=== PATIENT | female | born 1960 | race American Indian/Alaskan Native ===

== ENCOUNTER 2016-08-10 08:51 | Outpatient (CLI) | payer BC ==
[2016-08-10 09:05] LABS: Basophils % (Auto) 0.5 % (0.0-1.8); Eosinophils % (Auto) 2.2 % (0.0-4.3); Hemoglobin 13.3 gm/dl (10.1-14.3); Mean Corpuscular HGB Conc 34 % (30-34); Mean Corpuscular Hemoglobin 30 pg (28-32); Mean Corpuscular Volume 88 fl (79-97); Platelet Count 246 K/mm3 (140-440); Red Blood Count 4.45 M/mm3 (3.65-5.03); Red Cell Distribution Width 13.4 % (13.2-15.2); White Blood Count 5.1 K/mm3 (4.5-11.0)
[2016-08-10 09:13] LABS: Bacteria,Urine 1+ /HPF (Negative); Bilirubin,Urine NEG (Negative); Blood,Urine NEG (Negative); Ketones,Urine NEG (Negative); Leukocyte Esterase,Urine NEG (Negative); Nitrite,Urine NEG (Negative); Protein,Urine <15 mg/dL mg/dL (Negative); RBC,Urine < 1.0 /HPF (0.0-6.0); Urobilinogen,Urine < 2.0 mg/dL (<2.0); WBC,Urine < 1.0 /HPF (0.0-6.0)
[2016-08-10 09:17] LABS: Alanine Aminotransferase 20 units/L (7-56); Albumin 4.4 g/dL (3.9-5); Albumin/Globulin Ratio 1.2 %; Alkaline Phosphatase 75 units/L (35-129); Anion Gap 14 mmol/L; BUN/Creatinine Ratio 15.71; Bilirubin,Total 0.8 mg/dL (0.1-1.2); Blood Urea Nitrogen 11 mg/dL (7-17); Carbon Dioxide 29 mmol/L (22-30); Chloride 101.8 mmol/L (98-107); Cholesterol 234 mg/dL (50-199); Glucose 109 mg/dL (65-100); HDL Cholesterol 69 mg/dL (40-59); LDL Cholesterol,Direct 138 mg/dL (50-130); Potassium 4.1 mmol/L (3.6-5.0); Sodium 141 mmol/L (137-145); Total Protein 8.2 g/dL (6.3-8.2); Triglycerides 138 mg/dL (2-149)
[2016-08-14 17:05] LABS: Vitamin D, 25-OH, Total 11 ng/mL (30-100)
== END 2016-08-10 08:52 | disposition home or self-care (01) ==
LOC: LAB 08:51
PROVIDERS: ATTEND Internal Medicine
DX: Z00.00 Encounter for general adult medical examination without abnormal findings (principal)
CPT/HCPCS: 36415; 80053; 80061; 81001; 82043; 82306; 82607; 83036; 85025; 87086

== ENCOUNTER 2017-07-26 07:59 | Outpatient (CLI) | payer BC ==
--- NOTE | 2017-07-26 14:59 | Mammography Report ---
BILATERAL DIGITAL SCREENING MAMMOGRAM with CAD: 07/26/17 07:59:00 CLINICAL: Routine screening. COMPARISON:07/19/16 FINDINGS: The breasts are heterogeneously dense, which may obscure small masses. A right asymmetry on MLO view requires additional imaging.No architectural distortion or suspicious calcifications.The left breast is negative. IMPRESSION: Right asymmetry requiring further workup. BI-RADS CATEGORY: 0 -- Additional Imaging Evaluation Required RECOMMENDATION: Recall for right true lateral and spot magnification MLO views and right breast ultrasound if needed. ACR BI-RADS MAMMOGRAPHIC CODES: 0 = Needs additional imaging evaluation; 1 = Negative; 2 = Benign; 3 = Probably benign; 4 = Suspicious; 5 = Malignant; 6 = Known biopsy-proven malignancy COMMENT: 1. Dense breast tissue, i.e., adenosis, fibrocystic changes, etc., may obscure an underlying neoplasm. 2. Approximately 10% of cancers are not detected with mammography. 3. A negative mammography report should not delay biopsy if a clinically suspicious mass is present. COMMENT: Patient follow-up letters are generated via our [employer] application.
== END 2017-07-26 08:00 | disposition home or self-care (01) ==
LOC: MAMMO 07:59
PROVIDERS: ATTEND Obstetrics & Gynecology
DX: Z12.31 Encounter for screening mammogram for malignant neoplasm of breast (principal)
CPT/HCPCS: 77067; G0202

== ENCOUNTER 2017-08-08 13:26 | Outpatient (CLI) | payer BC ==
--- NOTE | 2017-08-08 15:26 | Mammography Report ---
Diagnostic right mammogram and targeted right breast ultrasound. History: Recall. Findings: On the spot compression image in the MLO projection, there is confirmation of a 4 mm circumscribed asymmetry to centrally. This is not definite identified on the CC compression view. Sonographic evaluation of the upper half of the right breast demonstrates a 3 mm in diameter hypoechoic circumscribed lesion at the 12:00 position, 6 cm from the nipple. This could represent the mammographic asymmetry, but this is not certain. Incidental note is made of an ovoid shaped circumscribed hyperechoic lesion at the 3:00 position, 7 cm from the nipple. This measures 8 x 4 mm it has benign features. No mammographic correlate is present. This may represent a lipoma. Impression: No suspicious findings. A tiny benign-appearing lesion is seen at the 12:00 position sonographically, possibly representing the mammographic density. BI-RADS code: 2. Recommendation: Annual screening.
== END 2017-08-08 13:27 | disposition home or self-care (01) ==
LOC: MAMMO 13:26
PROVIDERS: ATTEND Obstetrics & Gynecology
DX: N64.89 Other specified disorders of breast (principal)

== ENCOUNTER 2018-12-30 06:06 | Outpatient (CLI) | payer BC ==
[2019-01-05 20:52] LABS: Vitamin D, 25-OH, D2 37 ng/mL
== END 2018-12-30 06:07 | disposition home or self-care (01) ==
LOC: LAB 06:06
PROVIDERS: ATTEND Internal Medicine
DX: E55.9 Vitamin D deficiency, unspecified (principal); R73.03 Prediabetes; E78.00 Pure hypercholesterolemia, unspecified
CPT/HCPCS: 36415; 82306; 83036

== ENCOUNTER 2019-08-11 08:39 | Outpatient (CLI) | payer BC ==
[2019-08-11 09:16] LABS: Bacteria,Urine 1+ /HPF (Negative); Bilirubin,Urine NEG (Negative); Blood,Urine NEG (Negative); Color,Urine Yellow (Yellow); Mucus,Urine FEW /HPF; Protein,Urine <15 mg/dL mg/dL (Negative); Urobilinogen,Urine < 2.0 mg/dL (<2.0); WBC,Urine < 1.0 /HPF (0.0-6.0)
== END 2019-08-11 08:40 | disposition home or self-care (01) ==
LOC: LAB 08:39
PROVIDERS: ATTEND Obstetrics & Gynecology
DX: R39.89 Other symptoms and signs involving the genitourinary system (principal)
CPT/HCPCS: 81001; 87086

== ENCOUNTER 2019-08-13 06:58 | Outpatient (CLI) | payer BC ==
--- NOTE | 2019-08-13 08:34 | XRay Report ---
CERVICAL SPINE 5 VIEWS INDICATION: CERVICALGA. COMPARISON: None. IMPRESSION: Normal bone mineralization and alignment. Moderate discogenic disc disease with circumf erential spurring is identified at C5-6 and C6-7. Mild disc space narrowing is identified at C4-5. N o evidence for fracture, malalignment or bone lesion. The posterior elements are unremarkable. The ob lique images suggest mild to moderate right neural foraminal narrowing at C5-6. The prevertebral soft tissues are unremarkable. LEFT SHOULDER 3 VIEWS INDICATION: Pain in left shoulder. COMPARISON: None. IMPRESSION: No acute osseous or soft tissue abnormality. Mild to moderate osteoarthritic changes are identified at the left glenohumeral joint. Signer Name: Yair Bejarano Jr, MD Signed: 08/13/2019 8:30 AM Workstation Name: [id number]
== END 2019-08-13 06:59 | disposition home or self-care (01) ==
LOC: XRAY 06:58
PROVIDERS: ATTEND Clinical Nurse Specialist Adult Health
DX: M48.02 Spinal stenosis, cervical region (principal); M19.012 Primary osteoarthritis, left shoulder; M46.02 Spinal enthesopathy, cervical region
CPT/HCPCS: 72050

== ENCOUNTER 2019-09-07 09:47 | Day surgery (SDC) | payer BC ==
[~2019-09-07 09:47] MED LIST: SODIUM CHLORIDE 0.9% 1000 ML 1,000 ML IV SCH
[2019-09-07] MEDS ORDERED: LIDOCAINE MPF (2%) 20 MG/1 ML VIAL 5 ML ONE (10:00)
[2019-09-07] MEDS ORDERED: propofoL 200 MG/20 ML VIAL IV ONE ×2 (10:35)
--- NOTE | 2019-09-07 10:40 | Anesthesia Day of Surgery ---
Anesthesia Day of Surgery - Day of Surgery Patient Examined: Yes Patient H&P Reviewed: Yes Patient is NPO: Yes
--- NOTE | 2019-09-07 10:41 | Anesthesia Consultation ---
Anesthesia Consult and Med Hx Date of service: 09/07/19 - Airway Anesthetic Teeth Evaluation: Good ROM Head & Neck: Adequate Mental/Hyoid Distance: Adequate Mallampati Class: Class II Intubation Access Assessment: Good - Pre-Operative Health Status ASA Pre-Surgery Classification: ASA1 Proposed Anesthetic Plan: MAC - Pulmonary Hx Smoking: No Hx Asthma: No Hx Respiratory Symptoms: No SOB: No Hx Sleep Apnea: No (JOS PRE SCREEN LOW RISK) - Cardiovascular System Hx Hypertension: No Hx Heart Attack/AMI: No (Hx HLD) Hx Percutaneous Transluminal Coronary Angioplasty (PTCA): No - Central Nervous System Hx Seizures: No CVA: No - Gastrointestinal Hx Gastroesophageal Reflux Disease: No - Endocrine Hx Renal Disease: No Hx Liver Disease: No Hx Insulin Dependent Diabetes: No Hx Thyroid Disease: No - Other Systems Hx Cancer: No Hx Obesity: No
--- NOTE | 2019-09-07 11:27 | Post Operative Note ---
Date of procedure: 09/07/19 Pre-op diagnosis: Personal history of colon polyps Post-op diagnosis: same (colon polyp removed, internal hemorrhoids) Findings: Descending colon polyp removed internal hemorrhoids Procedure: Colonoscopy with snare polypectomy Anesthesia: MAC Surgeon: YUSUF KRUGER Estimated blood loss: minimal Pathology: list (Descending colon polyp) Specimen disposition: to lab Condition: stable Disposition: same day
--- NOTE | 2019-09-07 11:29 | Operative Report ---
Operative Report Operative Report: Colonoscopy Procedure Note with snare polypectomy Date of procedure: 09/07/2019 Endoscopist: Norris Bourgeois Pre-op diagnosis/indication: Surveillance for personal history of colon polyps Post-op diagnosis: Colon polyp removed MEDICATIONS: MAC COMPLICATIONS: No immediate complications ESTIMATED BLOOD LOSS: Minimal DESCRIPTION OF PROCEDURE: After consent was obtained, the patient was placed in the left lateral decubitis position. The olympus colonoscope was inserted into the rectum under direct vision, and advanced to the cecum without difficulty. The quality of prep was good. The patient tolerated the procedure well. The patient's vital signs were monitored continuously throughout the procedure. FINDINGS: There was an ~10 mm sessile polyp in the descending colon. The polyp was removed with cold snare polypectomy and retrieved. Few scattered diverticula in the colon. Internal hemorrhoids were visualized on retroflexion view. IMPRESSION: 1. Colon polyp removed with snare polypectomy and retrieved 2. Mild diverticulosis 3. Internal hemorrhoids RECOMMENDATIONS: -follow up pathology results -high fiber diet daily -repeat colonoscopy in 3-5 years for surveillance based on pathology results
[2019-09-07] MEDS ORDERED: WATER FOR IRRIG STERILE 250 ML BOTTLE IR ONE (11:40)
[2019-09-07 12:01] VITALS: BP 135/71
--- NOTE | 2019-09-07 23:09 | Post Anesthesia Evaluation ---
- Post Anesthesia Evaluation Patient Participated: Yes Airway Patent: Yes Stable Respiratory Function: Yes Nausea/Vomiting: No Temp > 96.8F: Yes Pain Manageable: Yes Adequeate Hydration: Yes Anesthesia Complications: No Block Receding Appropriately: Not Applicable Patient on Ventilator: No
== END 2019-09-07 09:48 | disposition home or self-care (01) ==
LOC: GIO 09:47
PROVIDERS: ATTEND Internal Medicine Gastroenterology
DX: Z12.11 Encounter for screening for malignant neoplasm of colon (principal); K92.1 Melena; K64.8 Other hemorrhoids; D12.4 Benign neoplasm of descending colon; E78.00 Pure hypercholesterolemia, unspecified; K57.30 Diverticulosis of large intestine without perforation or abscess without bleeding; Z86.010 Personal history of colon polyps; Z79.899 Other long term (current) drug therapy; Z98.51 Tubal ligation status; Z98.890 Other specified postprocedural states
CPT/HCPCS: 45385; 88305; J2704; J7030

== ENCOUNTER 2020-01-28 11:06 | Emergency (ER) | payer BC ==
[2020-01-28 12:01] VITALS: BP 160/70
--- NOTE | 2020-01-28 12:03 | Emergency Department Report ---
ED Extremity Problem HPI - General Chief complaint: Extremity Problem,Nontraumatic Stated complaint: RT LEG PAIN Time Seen by Provider: 01/28/20 11:58 Source: patient Mode of arrival: Ambulatory Limitations: No Limitations - History of Present Illness Initial comments: 59-year-old -Prydeinig female presents to the emergency room for acute right calf pain and itching with mild swelling. Patient is unaware if she has been bit by anything. 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 Patient denies any fever chills or nausea no vomiting. MD Complaint: extremity pain, extremity swelling -: This morning Location: right, lower extremity History of Same: No Severity scale (0 -10): 8 Consistency: constant Worsens with: other (Itching) Associated Symptoms: denies other symptoms - Related Data Previous Rx's Medication Instructions Recorded Last Taken Type cephALEXin [Keflex] 500 mg PO Q12HR 7 Days #14 cap 01/28/20 Unknown Rx Allergies Allergy/AdvReac Type Severity Reaction Status Date / Time No Known Allergies Allergy Verified 06/13/18 10:26 ED Review of Systems ROS: Stated complaint: RT LEG PAIN Other details as noted in HPI Comment: All other systems reviewed and negative ED Past Medical Hx - Past Medical History Hx Hypertension: No Hx Heart Attack/AMI: No (Hx HLD) Hx Liver Disease: No Hx Renal Disease: No Hx Seizures: No Hx Asthma: No Hx HIV: No - Surgical History Past Surgical History?: Yes Additional Surgical History: carpal tunnel right wrist - Social History Smoking Status: Never Smoker Substance Use Type: None - Medications Home Medications: Home Medications Medication Instructions Recorded Confirmed Last Taken Type cephALEXin [Keflex] 500 mg PO Q12HR 7 Days #14 cap 01/28/20 Unknown Rx ED Physical Exam - General Limitations: No Limitations General appearance: alert, in no apparent distress - Head Head exam: Present: atraumatic, normocephalic - Eye Eye exam: Present: normal appearance - ENT ENT exam: Present: mucous membranes moist - Back Exam Back exam: Present: normal inspection - Neurological Exam Neurological exam: Present: alert, oriented X3 - Psychiatric Psychiatric exam: Present: normal affect, normal mood - Skin Skin exam: Present: dry, intact, rash, erythema (Right calf), ecchymosis (Right calf from scratching) ED Medical Decision Making - Medical Decision Making 59-year-old -Prydeinig female presents to the emergency room for acute right calf pain and itching with mild swelling. Patient is unaware if she has been bit by anything. She did notice it today while at work here at the [facility] doing her rounds. Patient denies any fever chills or nausea no vomiting. Patient was placed on antibiotics instructed to use [id number] Benadryl and hydrocortisone cream. Critical care attestation.: If time is entered above; I have spent that time in minutes in the direct care of this critically ill patient, excluding procedure time. ED Disposition Clinical Impression: Cellulitis Disposition: DC-01 TO HOME OR SELFCARE Is pt being admited?: No Does the pt Need Aspirin: No Condition: Stable Instructions: Cellulitis (ED) Additional Instructions: Hold prescription until tomorrow if rash is not better then start antibiotics then. Try using [id number] calamine lotion hydrocortisone or Benadryl cream. If you develop a fever worsening swelling worsening rash return back to the emergency room. Prescriptions: cephALEXin [Keflex] 500 mg PO Q12HR 7 Days #14 cap Referrals: KINA LANGFORD MD [Staff Physician] - 3-5 Days Forms: Work/School Release Form(ED)
== END 2020-01-28 12:05 | disposition home or self-care (01) ==
LOC: ED 11:06
DX: L03.115 Cellulitis of right lower limb (principal); E78.5 Hyperlipidemia, unspecified
CPT/HCPCS: 99282

== ENCOUNTER 2020-11-16 11:33 | Emergency (ER) | payer BC ==
[2020-11-16 11:50] VITALS: BP 179/81
--- NOTE | 2020-11-16 13:03 | Emergency Department Report ---
ED Dizziness HPI - General Chief Complaint: Dizziness Stated Complaint: NASEAU, DIZZNESS Time Seen by Provider: 11/16/20 12:41 Source: patient Mode of arrival: Ambulatory Limitations: No Limitations - History of Present Illness Initial Comments: Chief complaint: This is the third episode." HPI: This is a 60-year-old female with history of hypercholesterolemia who presents with dizziness lightheadedness. 3 episodes sudden onset of lightheadedness nausea patient last several minutes. She denies chest pain. She denies shortness of breath. She denies palpitations. Symptoms spontaneously resolved. She admits to poor appetite recently. She states that she has been agitated and angry over the last 6 months. Her home life is good. Work is not any more stressful than in the past. 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 She denies depressed mood. Family history includes hypertension, breast cancer, liver cancer. No history of CVA, no history of cardiac disease. No history of diabetes mellitus. Her PCP is Dr. Lizette Gamble. Her last physical June 2019. She wanted to avoid the doctor's office during pandemic. She skipped her 2019 annual physical. She chooses to control her cholesterol with lifestyle modifications. She is intermittently compliant with low-cholesterol diet. She does not exercise. Patient has been monitoring her blood pressure over the last several months. Her blood pressure was elevated in her PCPs office on previous occasion. Blood pressure normally 120/84. Today her blood pressure was elevated in triage. MD Complaint: dizziness -: Sudden, This morning Timing: sudden onset Description: lightheadedness History of Same: Yes (3 total episodes over the last 2 months) Severity: mild Improves With: rest Worsens With: nothing Associated Symptoms: other (Lightheadedness nausea) - Related Data Previous Rx's Medication Instructions Recorded Last Taken Type cephALEXin [Keflex] 500 mg PO Q12HR 7 Days #14 cap 01/28/20 Unknown Rx Allergies Allergy/AdvReac Type Severity Reaction Status Date / Time No Known Allergies Allergy Verified 11/16/20 11:49 ED Review of Systems ROS: Stated complaint: NASEAU, DIZZNESS Other details as noted in HPI Comment: All other systems reviewed and negative Constitutional: denies: fever, malaise Respiratory: denies: cough, shortness of breath Cardiovascular: denies: chest pain, palpitations Gastrointestinal: nausea Psychiatric: other (Easily angered, agitated) ED Past Medical Hx - Past Medical History Previous Medical History?: Yes Hx Hypertension: No Hx Heart Attack/AMI: No (Hx HLD) Hx Liver Disease: No Hx Renal Disease: No Hx Seizures: No Hx Asthma: No Hx HIV: No - Surgical History Past Surgical History?: Yes Additional Surgical History: carpal tunnel right wrist - Family History Family history: hypertension, other (Breast cancer, liver cancer, hypertension) - Social History Smoking Status: Never Smoker Substance Use Type: None - Medications Home Medications: Home Medications Medication Instructions Recorded Confirmed Last Taken Type cephALEXin [Keflex] 500 mg PO Q12HR 7 Days #14 cap 01/28/20 Unknown Rx ED Physical Exam - General Limitations: No Limitations General appearance: alert, in no apparent distress, other (Well-appearing healthy no acute distress) - Head Head exam: Present: atraumatic, normocephalic - Eye Eye exam: Present: normal appearance - ENT ENT exam: Present: mucous membranes moist - Neck Neck exam: Present: normal inspection, full ROM - Respiratory Respiratory exam: Present: normal lung sounds bilaterally. Absent: respiratory distress, rales, rhonchi - Cardiovascular Cardiovascular Exam: Present: regular rate, normal rhythm, normal heart sounds. Absent: systolic murmur, diastolic murmur, rubs, gallop - GI/Abdominal GI/Abdominal exam: Present: soft, normal bowel sounds. Absent: distended, tenderness, guarding, rebound - Extremities Exam Extremities exam: Present: normal inspection - Back Exam Back exam: Present: normal inspection - Neurological Exam Neurological exam: Present: alert, oriented X3 - Psychiatric Psychiatric exam: Present: normal affect, normal mood - Skin Skin exam: Present: warm, dry, intact, normal color. Absent: rash ED Course Vital Signs 11/16/20 11:47 Temperature 97.5 F L Pulse Rate 65 Respiratory 20 Rate Blood Pressure 179/81 O2 Sat by Pulse 100 Oximetry ED Medical Decision Making - EKG Data -: EKG Interpreted by Me EKG shows normal: sinus rhythm, axis, intervals, QRS complexes, ST-T waves Rate: normal - EKG Data Interpretation: normal EKG 11/16/20 13:01 EKG obtained 1151 EKG interpreted by me Normal sinus rhythm normal rate normal axis normal intervals no ST elevation no ST-T signs of ischemia normal EKG rate 60 bpm - Medical Decision Making 1. Lightheadedness dizziness: History of hyper cholesterolemia, elevated blood pressure in triage possibly reflective of hypertensive urgency, hyperglycemia consideration. I do not suspect ACS. Patient low risk for cardiac disease. I have referred patient to junior linux administrator. I referred patient to PCP. Patient understands return to the emergency department for worsening symptoms, persistent symptoms, new symptoms such as chest pain shortness of breath near syncope. I encouraged her to monitor her blood pressure over the next 2 weeks. She will follow with her PCP as soon as possible. Critical care attestation.: If time is entered above; I have spent that time in minutes in the direct care of this critically ill patient, excluding procedure time. ED Disposition Clinical Impression: Hypertensive urgency Disposition: DC-01 TO HOME OR SELFCARE Is pt being admited?: No Does the pt Need Aspirin: No Condition: Stable Additional Instructions: Your blood pressure today was 179/81. Please record your blood pressure values over the next 2 weeks. Please send these values to your PCP. Referrals: DL HUYNH MD [Staff Physician] - 3-5 Days LIZETTE GAMBLE NP [Referring] - 3-5 Days Forms: Work/School Release Form(ED)
--- NOTE | 2020-11-17 09:37 | Electrocardiograph Report ---
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
== END 2020-11-16 13:48 | disposition home or self-care (01) ==
LOC: ED 11:33
DX: I16.0 Hypertensive urgency (principal); Z79.899 Other long term (current) drug therapy
CPT/HCPCS: 93005; 99282

== ENCOUNTER 2020-11-25 06:39 | Outpatient (CLI) | payer BC ==
--- NOTE | 2020-11-25 08:27 | Mammography Report ---
DIGITAL SCREENING MAMMOGRAM WITH CAD, 11/25/2020 CLINICAL INFORMATION / INDICATION: Routine screening mammography. TECHNIQUE: Digital bilateral 2D mammography was obtained in the craniocaudal and mediolateral obliqu e projections. This examination was interpreted with the benefit of Computer-Aided Detection analysis . COMPARISON: Prior mammograms 07/30/2019 and 07/28/2018 FINDINGS: Breast Density: There are scattered areas of fibroglandular density. No dominant mass, suspicious calcifications, or architectural distortion in either breast. There has been no significant change compared with the prior examinations. IMPRESSION: No mammographic evidence of malignancy. Follow up recommendation: Routine yearly BI-RADS Category 1: Negative. A "normal" or negative report should not discourage follow up or biopsy of a clinically significant f inding. A written summary of these findings will be mailed to the patient. The patient will be entered into a mammography reporting system which will generate a reminder letter for the patient's next appointmen t at the appropriate interval. The [employer] recommends yearly mammograms starting at age 40 and continuing as l an as a woman is in good health. Breast MRI is recommended for women with an approximate 20-25% or greater lifetime risk of breast cancer, including women with a strong family history of breast or ova douglas cancer or who have been treated for Hodgkin's disease. Signer Name: Ellen Gordon MD Signed: 11/25/2020 8:22 AM Workstation Name: [id number]
== END 2020-11-25 06:40 | disposition home or self-care (01) ==
LOC: MAMMO 06:39
PROVIDERS: ATTEND Clinical Nurse Specialist Adult Health
DX: Z12.31 Encounter for screening mammogram for malignant neoplasm of breast (principal)
CPT/HCPCS: 77067

== ENCOUNTER 2020-12-30 08:01 | Outpatient (CLI) | payer BC ==
--- NOTE | 2020-12-30 12:22 | Ultrasound Report ---
ULTRASOUND PELVIS COMPLETE ULTRASOUND TRANSVAGINAL INDICATION / CLINICAL INFORMATION: PELVIC PAIN. TECHNIQUE: Transabdominal and Transvaginal. Duplex Color Doppler used: Yes. COMPARISON: No relevant comparison FINDINGS: UTERUS: Present. - Appearance (if present): Mildly heterogeneous. - Size in cm (if present): 8.2 x 3.7 x 5.3. - Endometrial Complex (if present): No significant abnormality.. Thickness in cm (if measured) = 0.2 - Mass lesions: A 1.6 x 1.4 x 1.1 cm slightly hyperechoic mass is identified in the anterior fundal r egion. This appears to represent a submucosal fibroid. - Additional findings: None. RIGHT ADNEXA: No significant ovarian cyst or mass. Normal color Doppler blood flow. Right ovary measu res 2.3 x 1.6 x 2.0 cm. LEFT ADNEXA: No significant ovarian cyst or mass. Normal color Doppler blood flow. Left ovary measure s 2.5 x 1.4 x 1.7 cm. URINARY BLADDER: No significant abnormality. FREE FLUID: None. ADDITIONAL FINDINGS: None. IMPRESSION: Uterine fibroid as described. Signer Name: Yair Bejarano Jr, MD Signed: 12/30/2020 12:18 PM Workstation Name: [id number]
== END 2020-12-30 08:02 | disposition home or self-care (01) ==
LOC: US 08:01
PROVIDERS: ATTEND Obstetrics & Gynecology
DX: D25.9 Leiomyoma of uterus, unspecified (principal)
CPT/HCPCS: 76830; 76856

== ENCOUNTER 2021-11-29 14:09 | Outpatient (CLI) | payer BC | END 2021-11-29 14:10 | disposition home or self-care (01) | LOC: SPVWC 14:09 | PROVIDERS: ATTEND Clinical Nurse Specialist Adult Health | DX: Z12.31 Encounter for screening mammogram for malignant neoplasm of breast (principal) | CPT/HCPCS: 77063; 77067 ==

== ENCOUNTER 2021-12-18 15:55 | Outpatient (CLI) | payer BC ==
[2021-12-18 16:36] LABS: Basophils % (Auto) 0.5 % (0.0-1.8); Eosinophils # (Auto) 0.1 K/mm3 (0.0-0.4); Eosinophils % (Auto) 1.4 % (0.0-4.3); Hematocrit 40.5 % (30.3-42.9); Hemoglobin 13.6 gm/dl (10.1-14.3); Lymphocytes # (Auto) 2.7 K/mm3 (1.2-5.4); Lymphocytes % (Auto) 38.8 % (13.4-35.0); Mean Corpuscular HGB Conc 34 % (30-34); Mean Corpuscular Volume 88 fl (79-97); Monocytes # (Auto) 0.6 K/mm3 (0.0-0.8); Monocytes % (Auto) 8.2 % (0.0-7.3); Platelet Count 281 K/mm3 (140-440); Red Blood Count 4.62 M/mm3 (3.65-5.03); Red Cell Distribution Width 13.7 % (13.2-15.2)
[2021-12-18 16:51] LABS: Alanine Aminotransferase 19 units/L (7-56); Albumin 4.7 g/dL (3.9-5); Blood Urea Nitrogen 9 mg/dL (7-17); Calcium 9.9 mg/dL (8.4-10.2); Chol/HDL Ratio 4.67 %; HDL Cholesterol 58 mg/dL (40-59); Hemolysis Index 8; LDL Cholesterol,Direct 191 mg/dL (50-130)
[2021-12-18 16:57] LABS: BUN/Creatinine Ratio 13
[2021-12-21 16:13] LABS: Vitamin D, 25-OH, D2 32 ng/mL
== END 2021-12-18 15:56 | disposition home or self-care (01) ==
LOC: LAB 15:55
PROVIDERS: ATTEND Clinical Nurse Specialist Adult Health
DX: Z00.00 Encounter for general adult medical examination without abnormal findings (principal)
CPT/HCPCS: 36415; 80053; 80061; 82306; 83036; 84443; 85025